=== PATIENT | female | born 1955 | race Caucasian/White ===

== ENCOUNTER 2017-09-19 08:12 | Day surgery (SDC) | payer OTHER ==
[~2017-09-19] VITALS: Ht 160 cm; Wt 100.0 kg
[~2017-09-19 08:12] MED LIST: EFFEXOR75 MG PO; LO-DOSE ASPIRIN81 M2 PO; ZOCOR40 MG PO
[2017-09-19 08:48] VITALS: BP 149/73
[2017-09-19 13:30] VITALS: BP 156/74
[2017-09-19 14:25] VITALS: BP 175/88
== END 2017-09-19 14:30 | disposition home or self-care (01) ==
LOC: SDC
DX: M70.61 Trochanteric bursitis, right hip (principal); G57.01 Lesion of sciatic nerve, right lower limb; E78.5 Hyperlipidemia, unspecified; F32.9 Major depressive disorder, single episode, unspecified; Z90.49 Acquired absence of other specified parts of digestive tract; Z88.5 Allergy status to narcotic agent; Z83.3 Family history of diabetes mellitus; Z87.891 Personal history of nicotine dependence
CPT/HCPCS: J0131; J0330; J0690; J1100; J1170; J1885; J2250; J2405; J3010